=== PATIENT | male | born 1975 | race Caucasian/White ===

== ENCOUNTER 2024-05-04 12:13 | Observation (INO) | payer SELFPAY ==
[2024-05-04 14:39] VITALS: BMI 26.0
[2024-05-04] MEDS ORDERED: Dextrose 5% in Water 1,000 ML IV PRN (14:49)
[2024-05-04] MEDS ORDERED: Acetaminophen 325 MG TAB PO PRN (14:49)
[2024-05-04] MEDS ORDERED: Glucagon 1 MG/ML KIT IM PRN (14:49)
[2024-05-04] MEDS ORDERED: Senokot S 8.6-50 MG TAB PO PRN (14:49)
[2024-05-04] MEDS ORDERED: Dextrose 50% Abboject 50 ML SYRINGE SLOW IVP PRN (14:49)
[2024-05-04] MEDS: Sodium Chloride 0.9% 1,000 ML IV SCH (15:45)
[2024-05-04 16:45] LABS: Troponin I 0.087 ng/mL (< 0.028)
[2024-05-04] MEDS: Sucralfate 1 GM TAB PO SCH (16:48)
[2024-05-04] MEDS: Carvedilol 25 MG TAB PO SCH (16:48)
[2024-05-04] MEDS: Insulin Lispro 100 UNIT/ML 10 ML VIAL SC PRN (16:52)
[2024-05-04] MEDS: Atorvastatin Calcium 40 MG TAB PO SCH (20:13)
[2024-05-04] MEDS: Gabapentin 300 MG CAP PO SCH (20:13)
[2024-05-05] MEDS: Ondansetron PF 4 MG/2 ML Vial IVP PRN (00:20)
[2024-05-05] MEDS: Lidocaine 10 ML, Aluminum & Magnesium Hydroxide 30 ML SSW SCH (01:02)
[2024-05-05 05:04] LABS: #Basophils 0.05 10x3/uL (0.0-0.2); %Basophils 0.5 % (0.0-1.0); %Eosinophils 2.5 % (0.0-10.0); %Lymphocytes 21.1 % (21.0-51.0); %Monocytes 6.5 % (0.0-10.0); %Neutrophils 69.1 % (42.0-75.0); Hematocrit 27.9 % (42.0-52.0); Hemoglobin 9.6 g/dL (14.0-18.0); Mean Corpuscular HGB CONC 34.4 g/dL (32.0-36.0); Mean Corpuscular Volume 87.2 fL (78.0-98.0); Mean Platelet Volume 11.2 fL (7.4-10.4); Platelet Count 281 10x3/uL (130-400); RBC Distribution Width 13.5 % (11.5-14.5)
[2024-05-05 05:29] LABS: Anion Gap 14 mmol/L (10-20); BUN (Urea Nitrogen) 24 mg/dL (8.9-20.6); Calc. Creatinine Clearance 40 mL/min (70-130); Carbon Dioxide 24 mmol/L (22-29); Chloride 102 mmol/L (98-107); Estimated GFR 28; Glucose 244 mg/dL (70-105); Potassium 4.7 mmol/L (3.5-5.1); Sodium 135 mmol/L (136-145)
[2024-05-05] MEDS: Furosemide 20 MG (2 mL) VIAL SLOW IVP SCH (05:29)
[2024-05-05] MEDS: Lisinopril 20 MG TAB PO SCH (08:30)
[2024-05-05] MEDS: Pantoprazole DR 40 MG TAB PO SCH (08:30)
[2024-05-05] MEDS: Enoxaparin 40 MG (0.4 mL) SYRINGE SC SCH (08:30)
[2024-05-05] MEDS: Aspirin Chewable 81 MG TAB PO SCH (08:30)
[2024-05-05] MEDS ORDERED: Clopidogrel Bisulfate 75 MG TAB PO SCH (09:00)
[2024-05-05 09:06] VITALS: BP 131/73; TEMP 98.2
== END 2024-05-05 13:42 | disposition left against medical advice (07) ==
LOC: OBS 14:19 → UNDOADMOB 14:19 → UNDODISOB 17:36 → OBS 17:44
PROVIDERS: ADMIT Internal Medicine; ATTEND Internal Medicine
DX: R07.2 Precordial pain (principal); M06.9 Rheumatoid arthritis, unspecified; E78.5 Hyperlipidemia, unspecified; I13.0 Hypertensive heart and chronic kidney disease with heart failure and stage 1 through stage 4 chronic kidney disease, or unspecified chronic kidney disease; I50.20 Unspecified systolic (congestive) heart failure; N18.30 Chronic kidney disease, stage 3 unspecified; E10.22 Type 1 diabetes mellitus with diabetic chronic kidney disease; N17.9 Acute kidney failure, unspecified; E10.42 Type 1 diabetes mellitus with diabetic polyneuropathy; Z95.5 Presence of coronary angioplasty implant and graft; I25.10 Atherosclerotic heart disease of native coronary artery without angina pectoris; Z79.4 Long term (current) use of insulin; Z79.82 Long term (current) use of aspirin; Z79.899 Other long term (current) drug therapy
CPT/HCPCS: 36415; 36416; 80048; 83880; 85025; 93005; 93010; 94760; 96372; 96374; 96375; 96376; G0378; J1650; J1815; J1940; J2405

== ENCOUNTER 2025-04-12 08:01 | Emergency (ER) | payer OTHER ==
[2025-04-12 08:22] LABS: #Basophils 0.07 10x3/uL (0.0-0.2); #Eosinophils 0.48 10x3/uL (0.0-0.7); #Monocytes 0.49 10x3/uL (0.11-0.59); #Neutrophils 5.82 10x3/uL (1.40-6.50); %Basophils 0.8 % (0.0-1.0); %Eosinophils 5.6 % (0.0-10.0); %Lymphocytes 19.1 % (21.0-51.0); %Monocytes 5.8 % (0.0-10.0); %Neutrophils 68.5 % (42.0-75.0); Hematocrit 28.3 % (42.0-52.0); Hemoglobin 9.2 g/dL (14.0-18.0); Mean Corpuscular Hemoglobin 29.3 pg (27.0-31.0); Mean Corpuscular Volume 90.1 fL (78.0-98.0); Platelet Count 238 10x3/uL (130-400); Red Blood Cell (RBC) Count 3.14 mill/uL (4.70-6.10); White Blood Cell (WBC) Count 8.50 10x3/uL (4.8-10.8)
[2025-04-12] MEDS ORDERED: Aspirin Chewable 81 MG TAB ONE (08:23)
[2025-04-12 08:42] LABS: ALT (SGPT) 14 U/L (Less than 45); AST (SGOT) 34 U/L (11-34); Albumin 2.8 g/dL (3.1-4.5); Alkaline Phosphatase 163 U/L (40-110); Anion Gap 14 mmol/L (10-20); BUN (Urea Nitrogen) 37 mg/dL (8.9-20.6); Bilirubin, Total 0.4 mg/dL (0.3-1.2); Calc. Creatinine Clearance 0 mL/min (70-130); Calcium 8.4 mg/dL (7.8-10.44); Carbon Dioxide 21 mmol/L (22-29); Chloride 106 mmol/L (98-107); Globulin 3.9 g/dL (2.4-3.5); Glucose 329 mg/dL (70-105); Lipase 37 U/L (8-78); Potassium 5.7 mmol/L (3.5-5.1); Sodium 135 mmol/L (136-145)
[2025-04-12] MEDS ORDERED: Nitroglycerin 0.4 MG TAB 1 EACH ONE (09:14)
[2025-04-12 09:48] LABS: Actual Bicarbonate (HCO3v) 21.6 mEq/L (22-28); Base Excess -4.7 mEq/L (-2.0 to +3.0); Calcium, Ionized (venous) 1.09 mmol/L (1.16-1.32); Chloride (VBG) 103 mmol/L (98-106); Hematocrit-VBG 30 % (42.0-52.0); Hemoglobin (Hb) 10.1 g/dL (13.1-17.2); Potassium (VBG) 5.02 mmol/L (3.70-5.30); Sodium 135 mmol/L (133-146)
[2025-04-12] MEDS ORDERED: Furosemide 40 MG (4 mL) VIAL ONE (09:58)
[2025-04-12] MEDS ORDERED: Nitroglycerin 2% Ointment 1 INCH/1 GM Packet ONE (09:58)
[2025-04-12 10:00] LABS: Bacteria/HPF None Seen HPF (None Seen); CAUTI Indications for Culture Fever or rigors; Glucose, Urine (Dipstick) Greater than 1000 mg/dL (Negative); Leukocyte Negative Leu/uL (Negative); Protein, Urine (Dipstick) 300 mg/dL (Neg-Trace); Specific Gravity, Urine 1.016 (1.002-1.036); WBC/HPF 0-3 HPF (0-3)
[2025-04-12 10:06] LABS: Urine Culture Reflex No No
[2025-04-12] MEDS ORDERED: cefTRIAXone (ROCEPHIN) 2 GM VIAL ONE (10:20)
[2025-04-12] MEDS ORDERED: CALCIUM GLUC 1 GM/NS 50 ML IV Bag ONE (11:07)
[2025-04-12] MEDS ORDERED: Azithromycin 500 MG VIAL ONE (12:07)
[2025-04-12] MEDS ORDERED: LOKELMA 10 GM PACKET PO SCH (12:15)
== END 2025-04-12 14:07 | disposition left against medical advice (07) ==
LOC: ERS 08:01
DX: I11.0 Hypertensive heart disease with heart failure (principal); I50.9 Heart failure, unspecified; N17.9 Acute kidney failure, unspecified; D64.9 Anemia, unspecified; E87.5 Hyperkalemia; J18.9 Pneumonia, unspecified organism; E11.9 Type 2 diabetes mellitus without complications; K21.9 Gastro-esophageal reflux disease without esophagitis; Z87.891 Personal history of nicotine dependence; Z79.4 Long term (current) use of insulin; Z79.82 Long term (current) use of aspirin; Z79.899 Other long term (current) drug therapy
CPT/HCPCS: 71045; 80053; 81001; 82010; 82805; 83605; 83690; 83880; 84484; 85025; 87040; 87149; 87428; 93005; 96365; 96366; 96367; 96368; 96375; J0456; J0613; J0696; J1940; J2270